=== PATIENT | female | born 2000 | race Caucasian/White ===

== ENCOUNTER 2018-03-11 10:01 | Emergency (ER) | payer OTHER ==
[~2018-03-11] VITALS: Ht 162.6 cm; Wt 63.5 kg
[2018-03-11 10:08] VITALS: BP_SYST 141
[2018-03-11 11:17] VITALS: BP_SYST 141
== END 2018-03-11 11:17 | disposition home or self-care (01) ==
LOC: SED 10:01
DX: H72.91 Unspecified perforation of tympanic membrane, right ear (principal); R03.0 Elevated blood-pressure reading, without diagnosis of hypertension
CPT/HCPCS: 99283

== ENCOUNTER 2023-05-30 10:56 | Emergency (ER) | payer MEDICAID, OTHER ==
[~2023-05-30] VITALS: Ht 162.6 cm; Wt 59.0 kg
[~2023-05-30 10:56] MED LIST: FLUORESCEIN SODIUM 1 MG OPHTHALMIC STRIP OP ONE; PROPARACAINE (OPTHANINE 0.5%) 15 ML DROPS OP ONE
[2023-05-30 11:03] VITALS: BP_SYST 126; PULSE 67; RESP 16; TEMP 97.8; O2SAT 99
[2023-05-30] MEDS ORDERED: OFLO5DRO6 EACH EYE (11:29)
[2023-05-30] MEDS ORDERED: IBUP-1969 PO (11:29)
[2023-05-30 12:10] VITALS: BP_SYST 126; PULSE 67; RESP 16; TEMP 97.8; O2SAT 99
== END 2023-05-30 12:06 | disposition home or self-care (01) ==
LOC: SED 10:56
DX: S05.01XA Injury of conjunctiva and corneal abrasion without foreign body, right eye, initial encounter (principal); Z79.899 Other long term (current) drug therapy; X58.XXXA Exposure to other specified factors, initial encounter; Y93.01 Activity, walking, marching and hiking; Y92.89 Other specified places as the place of occurrence of the external cause; Y99.8 Other external cause status
CPT/HCPCS: 99283